=== PATIENT | female | born 1945 | race African-American/Black ===

== ENCOUNTER → 2016-09-18 | Outpatient (CLI) | payer MEDICARE, OTHER ==
--- NOTE | 2016-09-18 15:34 | RAD ---
Exam performed: Carotid Doppler. Clinical indication: Left carotid stenosis Date of Service: 09/18/16. Comparison :None available. Technique: Real-time grayscale and Doppler evaluation of the carotid system was performed and images are obtained. Color flow and spectral analysis was observed. Findings: There is mild atheromatous calcification in the right carotid bulb with mild to moderate atheromatous calcifications the left carotid bulb with extension into the internal carotid artery bilaterally. Doppler interrogation reveals normal waveforms and velocities as follows . Peak systolic velocity within the right common carotid artery measures 103 cm/sec whereas on the left measures 163 cm/sec . The peak systolic velocity within the right ICA measures 143 cm/sec whereas on the left measures 147 cm/sec. The ICA to CCA ratio on the right measures 1.81 whereas on the left measures 1.56. There is antegrade flow in both vertebral arteries. Impression: 1.Mild atheromatous plaquing involving both carotid systems without any flow-limiting stenosis. Note: Stenosis calculations for CT, MR and conventional angiography are based upon determination of the distal ICA diameter in accordance with the NASCET methodology. Stenosis calculations for doppler studies are derived from validated velocity criteria which are known to correlate with NASCET methodology of determining stenosis.
== END | disposition home or self-care (01) ==
LOC: US 14:40
PROVIDERS: ATTEND Nurse Practitioner Family
DX: I65.22 Occlusion and stenosis of left carotid artery (principal)
CPT/HCPCS: 93880